=== PATIENT | female | born 1930 | race Caucasian/White ===

== ENCOUNTER 2018-09-28 01:39 | Inpatient (IN) | payer MEDICARE, OTHER ==
--- NOTE | 2018-09-28 02:26 | EDM.PDOC ---
ED HPI GENERAL MEDICAL PROBLEM - General Chief Complaint: Fever Stated Complaint: NEEDS FLUIDS Time Seen by Provider: 09/28/18 02:17 Source of Information: Reports: Patient, Family, RN Notes Reviewed History Limitations: Reports: Physical Impairment - History of Present Illness INITIAL COMMENTS - FREE TEXT/NARRATIVE: 88-year-old female presents emergency department today complaint of confusion, she is brought in by family members who concerned she may have a urinary tract infection they have noticed a strong urine smell and the confusion is started within the last 24 hours she has had fever as well difficult to obtain review of systems Denies Pain Score (Numeric/FACES): 0 - Related Data Allergies Allergy/AdvReac Type Severity Reaction Status Date / Time Sulfa (Sulfonamide Allergy Itching Verified 09/28/18 01:53 Antibiotics) Home Meds: Home Meds Palbociclib [Ibrance] 100 mg PO ASDIRECTED 09/28/18 [History] Past Medical History Genitourinary History: Reports: UTI, 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 Stage 4 CA. Social & Family History - Tobacco Use Smoking Status *Q: Never Smoker Second Hand Smoke Exposure: No - Caffeine Use Caffeine Use: Reports: Coffee - Alcohol Use Days Per Week of Alcohol Use: 0 - Recreational Drug Use Recreational Drug Use: No ED ROS GENERAL - Review of Systems Review Of Systems: ROS reveals no pertinent complaints other than HPI. ED EXAM, SEPSIS - Physical Exam Exam: See Below Text/Narrative:: General: Female not in any distress, alert and oriented 1 HEENT: head is atraumatic normocephalic, eyes pupils equal round reactive to light, sclera clear no conjunctivitis appreciated. Ears tympanic membranes clear and leo landmarks and light reflex are present bilaterally canals are clear. Nose no septal deviation, nares are clear, no blood present. Mouth mucosa is dry and pink no erythema or exudate noted in soft palate, tongue is midline uvula is midline, dentition is intact. Neck: Supple no thyromegaly no tracheal deviation. Nodes: Cervical nodes subclavicular nodes nontender no palpable lymphadenopathy noted. Lungs: clear to auscultation bilaterally with symmetrical respirations, no adventitious noise appreciated. CV: Regular rate and rhythm S1 and S2 appreciated no murmurs rubs or gallops noted. Abdomen: Soft, nontender, no palpable masses or organomegaly appreciated, no distention no guarding bowel sounds are present, . Neuro: GCS 15 Skin: Warm and dry, intact Extremities: No lower extremity edema appreciated, pedal pulse is +2. Course - Vital Signs Last Recorded V/S: Last Vital Signs Temp 102 F H 09/28/18 01:50 Pulse 100 09/28/18 01:50 Resp 24 H 09/28/18 01:50 BP 137/73 09/28/18 01:50 Pulse Ox 94 L 09/28/18 01:50 - Orders/Labs/Meds Orders: Active Orders 24 hr Category Date Time Status Vital Signs [RC] Q1H Care 09/28/18 02:22 Active CULTURE BLOOD [BC] Urgent Lab 09/28/18 02:35 Received CULTURE BLOOD [BC] Urgent Lab 09/28/18 02:40 Received CULTURE URINE [RM] Urgent Lab 09/28/18 02:20 Received Sodium Chloride 0.9% [Normal Saline] 1,000 ml Med 09/28/18 02:30 Active IV ASDIRECTED Blood Culture x2 Reflex Set [OM.PC] Urgent Oth 09/28/18 02:22 Ordered Medication Orders Sodium Chloride (Normal Saline) 1,000 mls @ 500 mls/hr IV ASDIRECTED PO Last Admin: 09/28/18 02:39 Dose: 500 mls/hr Labs: Laboratory Tests 09/28/18 09/28/18 09/28/18 Range/Units 02:20 02:35 02:35 WBC 2.3 L (4.5-11.0) K/uL RBC 2.40 L (3.30-5.50) M/uL Hgb 9.7 L (12.0-15.0) g/dL Hct 28.1 L (36.0-48.0) % MCV 117 H (80-98) fL MCH 40 H (27-31) pg MCHC 35 (32-36) % Plt Count 132 L (150-400) K/uL Neut % (Auto) 78 H (36-66) % Lymph % (Auto) 13 L (24-44) % Clark % (Auto) 8 H (2-6) % Eos % (Auto) 1 L (2-4) % Baso % (Auto) 0 (0-1) % Sodium 135 L (140-148) mmol/L Potassium 3.9 (3.6-5.2) mmol/L Chloride 99 L (100-108) mmol/L Carbon Dioxide 26 (21-32) mmol/L Anion Gap 13.9 (5.0-14.0) mmol/L BUN 23 H (7-18) mg/dL Creatinine 1.5 H (0.6-1.0) mg/dL Est Cr Clr Drug Dosing 21.19 mL/min Estimated GFR (MDRD) 33 L (>60) Glucose 113 H (74-106) mg/dL Lactic Acid (0.4-2.0) mmol/L Calcium 8.7 (8.5-10.1) mg/dL Total Bilirubin 0.8 (0.2-1.0) mg/dL AST 35 (15-37) U/L ALT 27 (12-78) U/L Alkaline Phosphatase 78 (46-116) U/L C-Reactive Protein 7.76 H (0.0-0.3) mg/dL Total Protein 6.8 (6.4-8.2) g/dL Albumin 3.0 L (3.4-5.0) g/dL Globulin 3.8 H (2.3-3.5) g/dL Albumin/Globulin Ratio 0.8 L (1.2-2.2) Urine Color Yellow Urine Appearance Cloudy Urine pH 6.0 (4.5-8.0) Ur Specific [place] 1.010 (1.008-1.030) Urine Protein 30 H (NEGATIVE) mg/dL Urine Glucose (UA) Normal (NEGATIVE) mg/dL Urine Ketones Negative (NEGATIVE) mg/dL Urine Occult Blood Large (NEGATIVE) Urine Nitrite Positive H (NEGATIVE) Urine Bilirubin Negative (NEGATIVE) Urine Urobilinogen Normal (NORMAL) mg/dL Ur Leukocyte Esterase Large (NEGATIVE) Urine RBC 5-10 H (0-5) Urine WBC 50-75 H (0-5) Ur Epithelial Cells Few Amorphous Sediment Not seen Urine Bacteria Many Urine Mucus Not seen 09/28/18 Range/Units 02:35 WBC (4.5-11.0) K/uL RBC (3.30-5.50) M/uL Hgb (12.0-15.0) g/dL Hct (36.0-48.0) % MCV (80-98) fL MCH (27-31) pg MCHC (32-36) % Plt Count (150-400) K/uL Neut % (Auto) (36-66) % Lymph % (Auto) (24-44) % Clark % (Auto) (2-6) % Eos % (Auto) (2-4) % Baso % (Auto) (0-1) % Sodium (140-148) mmol/L Potassium (3.6-5.2) mmol/L Chloride (100-108) mmol/L Carbon Dioxide (21-32) mmol/L Anion Gap (5.0-14.0) mmol/L BUN (7-18) mg/dL Creatinine (0.6-1.0) mg/dL Est Cr Clr Drug Dosing mL/min Estimated GFR (MDRD) (>60) Glucose (74-106) mg/dL Lactic Acid 1.4 (0.4-2.0) mmol/L Calcium (8.5-10.1) mg/dL Total Bilirubin (0.2-1.0) mg/dL AST (15-37) U/L ALT (12-78) U/L Alkaline Phosphatase (46-116) U/L C-Reactive Protein (0.0-0.3) mg/dL Total Protein (6.4-8.2) g/dL Albumin (3.4-5.0) g/dL Globulin (2.3-3.5) g/dL Albumin/Globulin Ratio (1.2-2.2) Urine Color Urine Appearance Urine pH (4.5-8.0) Ur Specific [place] (1.008-1.030) Urine Protein (NEGATIVE) mg/dL Urine Glucose (UA) (NEGATIVE) mg/dL Urine Ketones (NEGATIVE) mg/dL Urine Occult Blood (NEGATIVE) Urine Nitrite (NEGATIVE) Urine Bilirubin (NEGATIVE) Urine Urobilinogen (NORMAL) mg/dL Ur Leukocyte Esterase (NEGATIVE) Urine RBC (0-5) Urine WBC (0-5) Ur Epithelial Cells Amorphous Sediment Urine Bacteria Urine Mucus Meds: Medications Generic Name Dose Route Start Last Admin Trade Name Nia PRN Reason Stop Dose Admin Sodium Chloride 1,000 mls @ 500 mls/hr 09/28/18 02:30 09/28/18 02:39 Normal Saline IV 500 mls/hr ASDIRECTED PO Administration Discontinued Medications Generic Name Dose Route Start Last Admin Trade Name Nia PRN Reason Stop Dose Admin Ceftriaxone Sodium 1 gm/ 50 mls @ 100 mls/hr 09/28/18 02:41 09/28/18 02:51 Sodium Chloride IV 09/28/18 03:10 100 mls/hr ONETIME ONE Administration Ibuprofen 600 mg 09/28/18 03:27 Motrin PO 09/28/18 03:28 ONETIME ONE Departure - Departure Time of Disposition: 03:31 Disposition: Admitted As Inpatient 67 Condition: Fair Clinical Impression: UTI (urinary tract infection) Qualifiers: Urinary tract infection type: acute cystitis Hematuria presence: with hematuria Qualified Code(s): N30.01 - Acute cystitis with hematuria - Discharge Information Referrals: PCP,None [Primary Care Provider] - Forms: ED Department Discharge - My Orders Last 24 Hours: My Active Orders 09/28/18 02:20 CULTURE URINE [RM] Urgent 09/28/18 02:22 Vital Signs [RC] Q1H Blood Culture x2 Reflex Set [OM.PC] Urgent 09/28/18 02:30 Sodium Chloride 0.9% [Normal Saline] 1,000 ml IV ASDIRECTED 09/28/18 02:35 CULTURE BLOOD [BC] Urgent 09/28/18 02:40 CULTURE BLOOD [BC] Urgent - Assessment/Plan Last 24 Hours: My Active Orders 09/28/18 02:20 CULTURE URINE [RM] Urgent 09/28/18 02:22 Vital Signs [RC] Q1H Blood Culture x2 Reflex Set [OM.PC] Urgent 09/28/18 02:30 Sodium Chloride 0.9% [Normal Saline] 1,000 ml IV ASDIRECTED 09/28/18 02:35 CULTURE BLOOD [BC] Urgent 09/28/18 02:40 CULTURE BLOOD [BC] Urgent Plan: Assessment Acuity = acute Site and laterality = urinary tract infection Etiology = suspicious for bacterial cause Manifestations = confusion, fever Location of injury = Home Lab values = WBC low at 2.3 consistent leukopenia, hemoglobin low 9.7 consistent metachromic anemia creatinine elevated 1.5 consistent with acute renal failure stage G IIIB lactic acid normal 1.4 CRP elevated 7.76. Urinalysis reveals 5-10 RBCs consistent with a hematuria 50-75 WBCs consistent the pyuria and nitrate positive cultures pending Plan Called discussed case with Dr. Amezcua physician on-call at 3:30 he kindly agreed to admit the patient the hospital she has been started on antibiotics of Rocephin and cultures of urine and blood are pending This note was dictated using [employer] voice recognition software please call with any questions on syntax or grammar.
[2018-09-28] MEDS ORDERED: Sodium Chloride 0.9% 1,000 ML IV SCH (02:30)
[2018-09-28] MEDS ORDERED: cefTRIAXone 1 GM in Sodium Chloride 0.9% 50 ML IV ONE (02:41)
[2018-09-28] MEDS ORDERED: Ibuprofen 600 MG Tab PO ONE (03:27)
[2018-09-28] MEDS ORDERED: Ibuprofen 600 MG Tab PO PRN (03:32)
[2018-09-28] MEDS ORDERED: PALBOCICLIB 100 MG PO SCH (03:45)
[2018-09-28] MEDS: Sodium Chloride 0.9% 1,000 ML IV SCH ×2 (06:32→20:25)
[2018-09-28] MEDS ORDERED: Acetaminophen 325 MG Tab PO PRN (08:58)
--- NOTE | 2018-09-28 12:34 | HP ---
CHIEF COMPLAINT: Confusion. HISTORY OF PRESENT ILLNESS: An 88-year-old who for about 12 hours prior to admission was acting more confused. She was running a fever and urine was malodorous. Family brought her in, was concerned about urinary tract infection. The patient was confused and so getting much of a history out of the patient was difficult. PAST MEDICAL HISTORY: Right lumpectomy in 2009, with stage IV cancer. MEDICATIONS: Ibrance 100 mg. ALLERGIES: SULFA. SOCIAL HISTORY: Nonsmoker. FAMILY HISTORY: Unknown. REVIEW OF SYSTEMS: Really difficult to get anything out of her, but she denies any pain. No shortness of breath or chest pain. Denies any back pain. No abdominal pain reported. OBJECTIVE: VITAL SIGNS: Temperature 37.6, pulse 95, blood pressure 111/66, respirations 18, O2 saturation 91% on room air. HEENT: Ears are clear. Pharynx is clear. NECK: Supple. No adenopathy, thyromegaly, JVD, or carotid bruits. LUNGS: Clear. HEART: Regular with a grade 2/6 soft systolic murmur. ABDOMEN: Soft, nontender. No CVA tenderness. EXTREMITIES: No edema. SKIN: Negative. The patient is pleasantly confused. LABORATORY DATA: White count was low at 2.3, hemoglobin 9.7, platelets 132,000, 78% neutrophils, 13% lymphocytes, 18% monocytes. Sodium 135, potassium 3.9, chloride 99, BUN is 23, creatinine 1.5, glucose 113. Liver functions were normal. C-reactive protein was elevated at 7.76. Urinalysis showed 5 to 10 red cells, 50 to 75 white cells. ASSESSMENT: 1. Confusion, thought to be secondary to urinary tract infection. She was started on Rocephin in the emergency room, which we will continue along with IV fluids. We will transfer care to the Hospitalist Service. 2. Stage IV breast cancer with lumpectomy in 2009 with pancytopenia, thought to be secondary to her breast cancer treatment. Zain Amezcua MD /[id number]
[2018-09-28] MEDS: Melatonin 3 MG Tab PO PRN (20:19)
[2018-09-28] MEDS: cefTRIAXone 1 GM in Sodium Chloride 0.9% 50 ML IV SCH (22:11)
[2018-09-29] MEDS: Sodium Chloride 0.9% 1,000 ML IV SCH (04:50)
--- NOTE | 2018-09-29 12:04 | PCM.PN ---
- General Info Date of Service: 09/29/18 Subjective Update: Ms. Steward is an 88-year-old woman who was admitted through the emergency department early yesterday morning with marked weakness and confusion secondary to underlying urinary tract infection. Urine culture and blood cultures were obtained and she was started on IV antibiotic therapy with ceftriaxone. Both urine culture and blood cultures are growing gram-negative rods, and I'll ID and sensitivities are pending. She remains confused but is much more alert and interactive than she had been early yesterday morning on initial presentation. Functional Status: Reports: Tolerating Diet, Urinating - Review of Systems General: Reports: Fever, Weakness, Chills Pulmonary: Reports: No Symptoms Cardiovascular: Reports: No Symptoms Gastrointestinal: Reports: No Symptoms Genitourinary: Reports: No Symptoms - Patient Data Vitals - Most Recent: Last Vital Signs Temp 97.7 F 09/29/18 11:00 Pulse 71 09/29/18 11:00 Resp 18 09/29/18 11:00 BP 120/58 L 09/29/18 11:00 Pulse Ox 100 09/29/18 11:00 Weight - Most Recent: 121 lb 6.4 oz I&O - Last 24 Hours: Intake & Output 09/28/18 09/29/18 09/29/18 22:59 06:59 14:59 Intake Total 1722 1273 250 Output Total 550 Balance 1722 723 250 Lab Results Last 24 Hours: Laboratory Results - last 24 hr 09/29/18 09/29/18 Range/Units 05:00 05:00 WBC 2.1 L (4.5-11.0) K/uL RBC 2.17 L (3.30-5.50) M/uL Hgb 8.7 L (12.0-15.0) g/dL Hct 25.8 L (36.0-48.0) % MCV 119 H (80-98) fL MCH 40 H (27-31) pg MCHC 34 (32-36) % Plt Count 138 L (150-400) K/uL Neut % (Auto) 56 (36-66) % Lymph % (Auto) 32 (24-44) % [place] % (Auto) 8 H (2-6) % Eos % (Auto) 2 (2-4) % Baso % (Auto) 1 (0-1) % Sodium 139 L (140-148) mmol/L Potassium 3.8 (3.6-5.2) mmol/L Chloride 106 (100-108) mmol/L Carbon Dioxide 21 (21-32) mmol/L Anion Gap 15.8 H (5.0-14.0) mmol/L BUN 16 (7-18) mg/dL Creatinine 1.2 H (0.6-1.0) mg/dL Est Cr Clr Drug Dosing 26.12 mL/min Estimated GFR (MDRD) 42 L (>60) Glucose 100 (74-106) mg/dL Calcium 7.7 L (8.5-10.1) mg/dL Magnesium 1.8 (1.8-2.4) mg/dL Vic Results Last 24 Hours: Microbiology 09/28/18 02:40 Aerobic Blood Culture - Preliminary Blood - Arm, Right NO GROWTH AFTER 1 DAY Anaerobic Blood Culture - Preliminary 09/28/18 02:20 Urine Culture - Preliminary Urine, Clean Catch 09/28/18 02:35 Aerobic Blood Culture - Preliminary Blood - Arm, Right NO GROWTH AFTER 1 DAY Anaerobic Blood Culture - Preliminary NO GROWTH AFTER 1 DAY Med Orders - Current: Current Medications Acetaminophen (Tylenol) 650 mg PO Q4H PRN PRN Reason: Fever Last Admin: 09/29/18 05:07 Dose: 650 mg Enoxaparin Sodium (Lovenox) 30 mg SUBCUT Q24H [facility] Ceftriaxone Sodium 1 gm/ (Sodium Chloride) 50 mls @ 100 mls/hr IV Q24H [facility] Last Admin: 09/28/18 22:11 Dose: 100 mls/hr Lactobacillus Rhamnosus (Culturelle) 1 cap PO BID [facility] Melatonin (Melatonin) 9 mg PO BEDTIME PRN PRN Reason: Insomnia Last Admin: 09/28/18 20:19 Dose: 9 mg Discontinued Medications Sodium Chloride (Normal Saline) 1,000 mls @ 500 mls/hr IV ASDIRECTED [facility] Last Admin: 09/28/18 02:39 Dose: 500 mls/hr Ceftriaxone Sodium 1 gm/ (Sodium Chloride) 50 mls @ 100 mls/hr IV ONETIME ONE Stop: 09/28/18 03:10 Last Admin: 09/28/18 02:51 Dose: 100 mls/hr Sodium Chloride (Normal Saline) 1,000 mls @ 125 mls/hr IV ASDIRECTED [facility] Last Admin: 09/29/18 04:50 Dose: 125 mls/hr Ibuprofen (Motrin) 600 mg PO ONETIME ONE Stop: 09/28/18 03:28 Last Admin: 09/28/18 03:38 Dose: 600 mg Ibuprofen (Motrin) 600 mg PO Q6H PRN PRN Reason: Pain/Fever Non-Formulary Medication (Palbociclib [Ibrance]) 100 mg PO ASDIRECTED PO - Exam Quality Assessment: DVT Prophylaxis General: Alert, Cooperative, No Acute Distress. No: Oriented Lungs: Clear to Auscultation, Normal Respiratory Effort Cardiovascular: Regular Rate, Regular Rhythm, No Murmurs GI/Abdominal Exam: Soft, Non-Tender, No Organomegaly, No Distention Extremities: Non-Tender, No Pedal Edema - Problem List Review Problem List Initiated/Reviewed/Updated: Yes - My Orders Last 24 Hours: My Active Orders 09/28/18 20:07 Melatonin 9 mg PO BEDTIME PRN 09/28/18 22:00 cefTRIAXone [Rocephin] 1 gm Sodium Chloride 0.9% [Normal Saline] 50 ml IV Q24H 09/29/18 11:58 Convert IV to Saline Lock [OM.PC] Routine 09/29/18 12:00 Enoxaparin [Lovenox] 30 mg SUBCUT Q24H Lactobacillus Rhamnosus GG [Culturelle] 1 cap PO BID 09/30/18 05:00 BASIC METABOLIC PANEL,BMP [CHEM] Timed CBC WITH AUTO DIFF [HEME] Timed - Plan Plan:: ASSESSMENT AND PLAN COMPLICATED URINARY TRACT INFECTION-urine and blood cultures growing gram- negative rods, final ID and sensitivities pending. She is improved significantly from admission, more alert and interactive. -Saline lock -Continue ceftriaxone pending culture results METASTATIC BREAST CARCINOMA-continues to receive monthly chemotherapy, this is likely causing decrease in her white blood cell count MAINTENANCE ISSUES -DVT prophylaxis; Lovenox 30 mg subcutaneous daily -GI prophylaxis; not indicated -Johnson catheter; not indicated -Nutrition; regular diet -Nicotine dependence; not required CODE STATUS-FULL CODE ADMISSION STATUS-patient will be admitted to inpatient status, expect at least a 2 night hospital stay for evaluation and management of problems as outlined above. At the time of this admission I do not reasonably expected evaluation and management of this problem will require more than a 96 hour hospital stay. DISPOSITION-anticipate discharge to home after the hospital stay. PRIMARY CARE PROVIDER-she is from out of the area and does not have a local primary care provider
[2018-09-29] MEDS ORDERED: Enoxaparin 30 MG/0.3 ML Syringe SUBCUT SCH (13:00)
[2018-09-29] MEDS: Lactobacillus Rhamnosus GG (Probiotic) Cap PO SCH ×2 (14:22→21:22)
[2018-09-29] MEDS: Melatonin 3 MG Tab PO PRN (21:22)
[2018-09-29] MEDS: cefTRIAXone 1 GM in Sodium Chloride 0.9% 50 ML IV SCH (21:23)
[2018-09-30] MEDS: Lactobacillus Rhamnosus GG (Probiotic) Cap PO SCH (08:46)
--- NOTE | 2018-09-30 10:57 | PCM.DCSUM1 ---
Discharge Summary - Hospital Course Brief History: Ms. Steward is an 88-year-old woman who was admitted through the emergency department with increased weakness and confusion secondary to underlying urinary tract infection with sepsis. - Discharge Data Discharge Date: 09/30/18 Discharge Disposition: Home, Self-Care 01 Condition: Stable - Discharge Diagnosis/Problem(s) (1) Complicated urinary tract infection SNOMED Code(s): 00201005 ICD Code: N39.0 - URINARY TRACT INFECTION, SITE NOT SPECIFIED Status: Acute Current Visit: Yes (2) Sepsis SNOMED Code(s): 97442226 ICD Code: A41.9 - SEPSIS, UNSPECIFIED ORGANISM Status: Acute Current Visit: Yes (3) Malignant neoplasm of breast SNOMED Code(s): 746619180 ICD Code: C50.919 - MALIGNANT NEOPLASM OF UNSP SITE OF UNSPECIFIED FEMALE BREAST Status: Chronic Current Visit: No - Patient Summary/Data Hospital Course: Ms. Steward is an 88-year-old woman who was admitted through the emergency department with weakness and confusion secondary to urinary tract infection with underlying sepsis. She had been in her usual state of health until about 12 hours prior to admission when she was noted to be more confused and also experiencing urinary frequency and urgency. She became more confused and weak and was brought into the emergency department for further evaluation. White blood cell count was found to be low and urine showed evidence of infection. Blood and urine cultures were obtained in the emergency department and she was given IV fluids for hydration and management of sepsis. On admission IV fluids were continued and she was started on IV ceftriaxone for management of urinary tract infection. One of 4 blood cultures later grew out Escherichia coli which was found to be pansensitive. Urine culture also grew out pansensitive Escherichia coli. She was treated with probiotic therapy through her hospital stay. By the day of discharge she had been afebrile for a period of 24 hours and was back to baseline state. Because of the positive blood culture she will be discharged home with an additional 7 days of oral antibiotic therapy, cephalexin 500 mg every 8 hours. Probiotics will also be continued twice daily after discharge. Activity will be as tolerated and she will resume her usual diet. Follow-up appointment will be scheduled with her primary care provider within one week. She already has scheduled follow-up appointment with oncology for ongoing management of her stage IV breast carcinoma. - Patient Instructions Diet: Usual Diet as Tolerated Activity: As Tolerated Other/Special Instructions: Please schedule follow-up appointment with primary care provider within one week. - Discharge Plan *PRESCRIPTION DRUG MONITORING PROGRAM REVIEWED*: Not Applicable *COPY OF PRESCRIPTION DRUG MONITORING REPORT IN PATIENT MINH: Not Applicable Prescriptions/Med Rec: Cephalexin [Keflex] 500 mg PO Q8H #21 capsule Lactobacillus Rhamnosus GG [Culturelle] 1 cap PO BID #60 cap Home Medications: Home Meds Palbociclib [Ibrance] 100 mg PO ASDIRECTED 09/28/18 [History] Cephalexin [Keflex] 500 mg PO Q8H #21 capsule 09/30/18 [Rx] Lactobacillus Rhamnosus GG [Culturelle] 1 cap PO BID #60 cap 09/30/18 [Rx] - Discharge Summary/Plan Comment DC Time >30 min.: No - Patient Data Vitals - Most Recent: Last Vital Signs Temp 99.8 F 09/30/18 07:42 Pulse 76 09/30/18 07:42 Resp 16 09/30/18 07:42 BP 129/56 L 09/30/18 07:42 Pulse Ox 96 09/30/18 07:42 Weight - Most Recent: 122 lb 12.8 oz I&O - Last 24 hours: Intake & Output 09/29/18 09/30/18 09/30/18 22:59 06:59 14:59 Intake Total 240 300 Balance 240 300 Lab Results - Last 24 hrs: Laboratory Results - last 24 hr 09/30/18 09/30/18 Range/Units 05:00 05:00 WBC 2.0 L (4.5-11.0) K/uL RBC 2.15 L (3.30-5.50) M/uL Hgb 8.9 L (12.0-15.0) g/dL Hct 25.2 L (36.0-48.0) % MCV 117 H (80-98) fL MCH 41 H (27-31) pg MCHC 35 (32-36) % Plt Count 138 L (150-400) K/uL Neut % (Auto) 43 (36-66) % Lymph % (Auto) 35 (24-44) % [place] % (Auto) 16 H (2-6) % Eos % (Auto) 4 (2-4) % Baso % (Auto) 2 H (0-1) % Sodium 139 L (140-148) mmol/L Potassium 4.0 (3.6-5.2) mmol/L Chloride 105 (100-108) mmol/L Carbon Dioxide 26 (21-32) mmol/L Anion Gap 12.0 (5.0-14.0) mmol/L BUN 11 (7-18) mg/dL Creatinine 1.1 H (0.6-1.0) mg/dL Est Cr Clr Drug Dosing 28.25 mL/min Estimated GFR (MDRD) 47 L (>60) Glucose 87 (74-106) mg/dL Calcium 8.4 L (8.5-10.1) mg/dL CHARLES Results - Last 24 hrs: Microbiology 09/28/18 02:40 Aerobic Blood Culture - Preliminary Blood - Arm, Right NO GROWTH AFTER 2 DAYS Anaerobic Blood Culture - Final Escherichia Coli 09/28/18 02:20 Urine Culture - Final Urine, Clean Catch Escherichia Coli 09/28/18 02:35 Aerobic Blood Culture - Preliminary Blood - Arm, Right NO GROWTH AFTER 2 DAYS Anaerobic Blood Culture - Preliminary NO GROWTH AFTER 2 DAYS Med Orders - Current: Current Medications Acetaminophen (Tylenol) 650 mg PO Q4H PRN PRN Reason: Fever Last Admin: 09/29/18 05:07 Dose: 650 mg Enoxaparin Sodium (Lovenox) 30 mg SUBCUT Q24H [facility] Last Admin: 09/29/18 14:22 Dose: 30 mg Ceftriaxone Sodium 1 gm/ (Sodium Chloride) 50 mls @ 100 mls/hr IV Q24H [facility] Last Admin: 09/29/18 21:23 Dose: 100 mls/hr Lactobacillus Rhamnosus (Culturelle) 1 cap PO BID [facility] Last Admin: 09/30/18 08:46 Dose: 1 cap Melatonin (Melatonin) 9 mg PO BEDTIME PRN PRN Reason: Insomnia Last Admin: 09/29/18 21:22 Dose: 9 mg Discontinued Medications Sodium Chloride (Normal Saline) 1,000 mls @ 500 mls/hr IV ASDIRECTED [facility] Last Admin: 09/28/18 02:39 Dose: 500 mls/hr Ceftriaxone Sodium 1 gm/ (Sodium Chloride) 50 mls @ 100 mls/hr IV ONETIME ONE Stop: 09/28/18 03:10 Last Admin: 09/28/18 02:51 Dose: 100 mls/hr Sodium Chloride (Normal Saline) 1,000 mls @ 125 mls/hr IV ASDIRECTED [facility] Last Admin: 09/29/18 04:50 Dose: 125 mls/hr Ibuprofen (Motrin) 600 mg PO ONETIME ONE Stop: 09/28/18 03:28 Last Admin: 09/28/18 03:38 Dose: 600 mg Ibuprofen (Motrin) 600 mg PO Q6H PRN PRN Reason: Pain/Fever Non-Formulary Medication (Palbociclib [Ibrance]) 100 mg PO ASDIRECTED [facility] - Exam General: Reports: Alert, Cooperative, No Acute Distress. Denies: Oriented Lungs: Reports: Clear to Auscultation, Normal Respiratory Effort Cardiovascular: Reports: Regular Rate, Regular Rhythm, Murmurs GI/Abdominal Exam: Soft, Non-Tender, No Organomegaly, No Distention Extremities: Non-Tender, No Pedal Edema
== END 2018-09-30 11:37 | disposition home or self-care (01) | DRG 872 ==
LOC: JP.ED 01:39 → JP.MS 03:32
PROVIDERS: ADMIT Family Medicine; ATTEND Hospitalist
DX: A41.51 Sepsis due to Escherichia coli [E. coli] (principal); N39.0 Urinary tract infection, site not specified; C79.9 Secondary malignant neoplasm of unspecified site; R50.9 Fever, unspecified; R41.0 Disorientation, unspecified; C50.919 Malignant neoplasm of unspecified site of unspecified female breast; D72.819 Decreased white blood cell count, unspecified; Z87.440 Personal history of urinary (tract) infections; Z92.21 Personal history of antineoplastic chemotherapy; Z88.2 Allergy status to sulfonamides
CPT/HCPCS: 36415; 80053; 81001; 83605; 85025; 86140; 87040 ×2; 87077; 87086; 87088; 87186 ×2; 96365; 99285; J0696; J7030; J7050; 80048; 83735; A9270-GY; J1650